=== PATIENT | male | born 1995 | race African-American/Black ===

== ENCOUNTER 2019-05-22 15:44 | Emergency (ER) | payer SELFPAY ==
[~2019-05-22] VITALS: Ht 185.4 cm; Wt 91.0 kg
[2019-05-22] MEDS ORDERED: LEVE1000 PO (16:17)
[2019-05-22] MEDS ORDERED: LEVETIRACETAM 500MG PREMIX 100 ML IV ONE (16:30)
[2019-05-22] MEDS ORDERED: MIDAZOLAM HCL 2 MG/2 ML VIAL IM ONE (16:30)
[2019-05-22 17:34] LABS: BASOPHILS % 0.2 % (0.0-2.0); CHLORIDE 109 mEq/L (98-107); EOSINOPHILS % 0.3 % (0.0-5.0); HEMOGLOBIN. 12.3 g/dL (14.0-18.0); LYMPHOCYTES % 10.9 % (20.0-50.0); MEAN CORPUSCULAR HEMOGLOBIN 32.5 pg (28.0-32.0); MEAN CORPUSCULAR VOLUME 97.5 fL (80.0-94.0); MONOCYTES % 8.4 % (2.0-8.0); NEUTROPHILS % 80.2 % (40.0-76.0); PLATELET 153 x1000/uL (130-400); RED BLOOD CELL COUNT 3.79 mill/uL (4.7-6.1); RED CELL DISTRIBUTION WIDTH 12.7 % (11.6-14.6)
[2019-05-22 17:39] LABS: ETHANOL BLOOD < 10 mg/dL
[2019-05-22 20:34] LABS: CLARITY URINE CLEAR (CLEAR); COLOR URINE YELLOW (YELLOW); KETONES URINE TRACE (NEGATIVE); LEUKOCYTE ESTERASE URINE NEGATIVE (NEGATIVE); NITRITE URINE NEGATIVE (NEGATIVE); OCCULT BLOOD URINE NEGATIVE (NEGATIVE); PROTEIN URINE 1+ (NEGATIVE); SPECIFIC GRAVITY URINE 1.016 (1.005-1.030)
[2019-05-22 20:56] LABS: *AMPHETAMINES SCREEN URINE NEGATIVE (NEGATIVE); *BARBITURATES SCREEN URINE NEGATIVE (NEGATIVE); *BENZODIAZEPINES SCREEN URINE PRESUMTIVE POSITIVE (NEGATIVE); *COCAINE SCREEN URINE NEGATIVE (NEGATIVE)
[2019-05-22 20:57] LABS: CANNABINOID URINE SCREEN PRESUMTIVE POSITIVE (NEGATIVE); METHADONE URINE SCREEN NEGATIVE (NEGATIVE); OPIATES URINE SCREEN NEGATIVE (NEGATIVE); PHENCYCLIDINE URINE SCREEN NEGATIVE (NEGATIVE)
[2019-05-22] MEDS ORDERED: LEVETIRACETAM 500MG/5ML CUP PO ONE ×2 (21:45→22:00)
[2019-05-22] MEDS ORDERED: LEVETIRACETAM 250MG TABLET PO ONE (22:00)
[2019-05-22] MEDS ORDERED: LEVETIRACETAM 500MG TABLET PO ONE (22:00)
[2019-05-22 22:08] VITALS: BP 112/56
== END 2019-05-22 22:14 | disposition home or self-care (01) ==
LOC: EDBD 16:51 → ER 16:51
DX: R56.9 Unspecified convulsions (principal); Z79.899 Other long term (current) drug therapy
CPT/HCPCS: 36415; 70450; 80053; 80305; 80320; 81003; 85025; 96365; 96372; 99291; J1953; J2250; G0480